=== PATIENT | male | born 1975 | race American Indian/Alaskan Native ===

== ENCOUNTER 2016-11-25 10:55 | Emergency (ER) | payer SELFPAY ==
[2016-11-25] MEDS ORDERED: TYLENOL PO ONE (13:36)
[2016-11-25] MEDS ORDERED: CATAPRES PO ONE (13:36)
--- NOTE | 2016-11-25 13:36 | Emergency Department Report ---
ED Headache HPI - General Chief Complaint: Headache Stated Complaint: HEADACHE Time Seen by Provider: 11/25/16 13:06 Source: patient Exam Limitations: no limitations - History of Present Illness Initial Comments: Patient here reported right-sided head pain that is painful to this. Also reported that his left ear was swollen but it is not swollen anymore. He said it started after he got his hair braided. Patient blood pressure is 181/126 and he said he does not have blood pressure problems but his mom has high blood pressure. He said he has not gone to the doctor check his blood pressure long time. Denies any fever or chills. Denies any chest pain or shortness of breath. Denies any nausea or vomiting. Denies any neck pain or stiffness or numbness or tingling to extremities. Patient said he had headache in the past. Denies any blurred vision or dizziness. Timing/Duration: 1 week, waxing and waning Quality: moderate Head Injury Location: frontal, parietal Recent Head Trauma: occasional headaches Modifying Factors: improves with: rest Associated Symptoms: denies: confusion, fatigue, facial pain, fever/chills, flushing, loss of consciousness, nausea/vomiting, nasal congestion, nasal drainage, numbness in legs/feet, rash, seizures, sinus infection, stiff neck, vision changes, weakness Allergies/Adverse Reactions: Allergies Penicillins Adverse Reaction (Verified 11/25/16 11:29) Hives Home Medications: Ambulatory Orders Ibuprofen [Motrin] 600 mg PO Q8H PRN #15 tablet 11/25/16 ED Review of Systems ROS: Stated complaint: HEADACHE Other details as noted in HPI Comment: All other systems reviewed and negative Constitutional: denies: chills, fever Eyes: denies: eye pain, vision change ENT: denies: congestion Respiratory: no symptoms reported Cardiovascular: denies: chest pain, palpitations, edema, syncope Gastrointestinal: denies: abdominal pain, nausea, vomiting Musculoskeletal: denies: back pain, arthralgia Skin: denies: rash Neurological: headache. denies: weakness, numbness, paresthesias, confusion, abnormal gait, vertigo, other ED Past Medical Hx - Past Medical History Previous Medical History?: No - Surgical History Past Surgical History?: No - Family History Family history: hypertension - Social History Smoking Status: Current Every Day Smoker Substance Use Type: Alcohol - Medications Home Medications: Home Medications Medication Instructions Recorded Confirmed Last Taken Type Ibuprofen [Motrin] 600 mg PO Q8H PRN #15 tablet 11/25/16 Unknown Rx ED Physical Exam - General Limitations: No Limitations General appearance: alert, in no apparent distress - Head Head exam: Present: atraumatic, normocephalic, normal inspection - Expanded Head Exam Expanded Head exam: Absent: laceration, abrasion, contusion, hematoma, racoon eyes, ashraf's sign, general tenderness, tenderness of temporal artery, CSF rhinorrhea , CSF otorrhea - Eye Eye exam: Present: normal appearance, PERRL, EOMI. Absent: nystagmus, periorbital swelling, periorbital tenderness Pupils: Present: normal accommodation, other (Peripheral vision intact) - ENT ENT exam: Present: normal exam, normal orophraynx, mucous membranes moist, TM's normal bilaterally, normal external ear exam - Neck Neck exam: Present: normal inspection, full ROM. Absent: tenderness, meningismus, lymphadenopathy - Expanded Neck Exam Expanded Neck exam: Absent: tenderness, midline deformity, anterior neck swelling, tracheal deviation - Respiratory Respiratory exam: Present: normal lung sounds bilaterally. Absent: respiratory distress, chest wall tenderness - Cardiovascular Cardiovascular Exam: Present: regular rate, normal rhythm, normal heart sounds, other (BP elevated) - GI/Abdominal GI/Abdominal exam: Present: soft, normal bowel sounds. Absent: distended, tenderness, guarding, rebound, rigid - Extremities Exam Extremities exam: Present: normal inspection, full ROM, normal capillary refill. Absent: tenderness, pedal edema, joint swelling, calf tenderness - Back Exam Back exam: Present: normal inspection, full ROM. Absent: tenderness, CVA tenderness (R), CVA tenderness (L), muscle spasm, paraspinal tenderness, vertebral tenderness, rash noted - Neurological Exam Neurological exam: Present: alert, oriented X3, normal gait, reflexes normal. Absent: motor sensory deficit - Expanded Neurological Exam Expanded Neurological exam: Absent: innattentive, memory loss-remote event, memory loss- recent event, ataxia, receptive aphasia, expressive aphasia, total aphasia, tremor, protecting the airway Patient oriented to: Present: person, place, time Speech: Present: fluid speech Cranial nerves: EOM's Intact: Normal, Tongue Deviation: Normal, Nystagmus: Normal, Facial Sensation: Normal, Facial Palsy with Forehead Movement: Normal Cerebellar function: Romberg: Normal Upper motor neuron: Pronator Drift: Normal Sensory exam: Upper Extremity Light Touch: Normal, Upper Extremity Temperature: Normal, UE 2 Point Discrimination: Normal, Lower Extremity Light Touch: Normal, Lower Extremity Temperature: Normal, LE 2 Point Discrimination: Normal Motor strength exam: RUE: 5, LUE: 5, RLE: 5, LLE: 5 DTR: bicep (R): 2+, bicep (L): 2+, tricep (R): 2+, tricep (L): 2+, knee (R): 2+ , knee (L): 2+, ankle (R): 2+, ankle (L): 2+ Best Eye Response ([facility]): (4) open spontaneously Best Motor Response ([facility]): (6) obeys commands Best Verbal Response ([facility]): (5) oriented [facility] Total: 15 - Psychiatric Psychiatric exam: Present: normal affect, normal mood - Skin Skin exam: Present: warm, dry, intact, normal color. Absent: rash ED Course Vital Signs 11/25/16 11/25/16 11/25/16 11:25 13:47 14:06 Temperature 99.2 F Pulse Rate 64 64 Respiratory 16 Rate Blood Pressure 181/126 181/126 Blood Pressure 150/96 [Left] O2 Sat by Pulse 100 Oximetry - Reevaluation(s) Reevaluation #1: 11/25/16 15:01 Patient given Tylenol 975 mg by mouth for headache which relieved his headache. He was given Catapres 0.2 mg for her elevated blood pressure. Patient is now 150/96. Patient reports that he is feeling much better. ED Medical Decision Making - Medical Decision Making ED course: I informed patient that his CT scan reveals normal exam. I discussed the patient that he will need to keep a record of his blood pressure he can buy a blood pressure machine in [place] or go to fire department or drugstore to get his blood pressure taken and keep a log. Aggressive him that he will need to follow-up with outside Medical Center as he does not have a PCP for evaluation and treatment. I Discussed with patient he is high blood pressure and also he smokes. I Discussed with him was some modification and patient was understanding of discharge instruction. He did not want ibuprofen any blood pressure medication he said he will try other methods and he will keep a record of his blood pressure. I discussed the patient multiple traumatic events that could happen if his blood pressure stays elevated. Critical care attestation.: If time is entered above; I have spent that time in minutes in the direct care of this critically ill patient, excluding procedure time. ED Disposition Clinical Impression: Elevated blood pressure reading, Encounter for smoking cessation counseling Headache Qualifiers: Headache type: unspecified Headache chronicity pattern: acute headache Intractability: not intractable Qualified Code(s): R51 - Headache Disposition: DISCHARGED TO HOME OR SELFCARE Is pt being admited?: No Does the pt Need Aspirin: No Condition: Stable Instructions: Hypertension (ED), Low Sodium Diet (ED), DASH Eating Plan (ED), Heart Healthy Diet (ED), How to Stop Smoking (ED) Additional Instructions: Please keep a record of his blood pressure and call community clinic to schedule appointment for evaluation. Please practice less than modification as discussed. Stop smoking cigarettes as ischemic cause her blood pressure to be elevated. Prescriptions: Ibuprofen [Motrin] 600 mg PO Q8H PRN #15 tablet PRN Reason: Pain Referrals: [facility] [Outside] - 3-5 Days Forms: Work/School Release Form(ED)
--- NOTE | 2016-11-25 13:56 | Cat Scan Report ---
CT HEAD WITHOUT CONTRAST: 11/25/16 10:55:00 CLINICAL: Headache and elevated blood pressure.. TECHNIQUE: 5-mm and 2.5-mm noncontrast scans. COMPARISON:None FINDINGS: The ventricles and sulci are normal for age. No abnormal density. No mass or mass effect. No hemorrhage, edema or extra-axial collection. The sinuses are clear. Normal orbits and soft tissues. The calvarium and skull base are intact. IMPRESSION: Normal study.
[2016-11-25 14:08] VITALS: BP 150/96
== END 2016-11-25 15:16 | disposition home or self-care (01) ==
LOC: ED 10:55
DX: R03.0 Elevated blood-pressure reading, without diagnosis of hypertension (principal); R51 Headache; F17.200 Nicotine dependence, unspecified, uncomplicated
CPT/HCPCS: 70450; 99283